=== PATIENT | male | born 1985 | race Caucasian/White ===

== ENCOUNTER 2018-05-09 10:50 | Emergency (ER) | payer OTHER ==
[2018-05-09] MEDS ORDERED: NS 1,000 ML IV ONE (11:08)
--- NOTE | 2018-05-09 11:22 | EDPHY ---
HPI/HX/ROS/PE/MDM Narrative: CHIEF COMPLAINT: Right-sided abdominal/flank pain HPI: This patient is a generally healthy 34-year-old male. He presents with right- sided abdominal and flank pain which began two days ago. The discomfort is a mild pressure sensation and intermittent, and seems to be associated with the urge to have a bowel movement. He denies fever. Two days ago, felt some malaise , but this has resolved. He endorses diarrhea this morning. No vomiting. No dysuria. He endorses possible dark urine but has not noted any lisa blood. No recent trauma. No abdominal surgeries. Family history of kidney stones in father. No chest pain, shortness of breath, headache, nausea, syncope, or other associated symptoms. REVIEW OF SYSTEMS: A comprehensive 10 system review of systems is otherwise negative aside from elements mentioned in the history of present illness and medical decision making. PMH: Left ACL repair. SOCIAL HISTORY: Works in [employer]. Single. Lives in [place]. PHYSICAL EXAM: General:Patient is alert, in no acute distress. ENT:Eyes are normal to inspection. ENT inspection normal. Neck: Normal inspection. Full range of motion. Respiratory:No respiratory distress. Breath sounds normal bilaterally. Cardiovascular: Regular rate and rhythm. Strong peripheral pulses. Normal cap refill. Abdomen:The abdomen is nontender to palpation. There are no peritoneal signs. There are normal bowel sounds. Back: Normal to inspection. No tenderness to palpation. Skin: Normal color. No rash. Warm and dry. Extremities: Normal appearance. Full range of motion. Neuro: Oriented x3. Normal motor function. Normal sensory function. ED Course: 32 y/o male presents with right-sided flank/abdominal discomfort, intermittent for the past two days. IV established. Plan for labs including CBC, chemistries , UA. Plan to administer 1L IV NS for symptom relief. Reviewed laboratory studies. These are largely unremarkable. 12:11 Reassessed. Discussed laboratory results. Discussed further evaluation including CT imaging. The patient declines CT abdomen/pelvis and would like to go home. He understands we cannot rule out processes including appendicitis or kidney stone without further testing and imaging. Plan to discharge home in good condition. Follow up and return precautions discussed. He is comfortable with this plan. MDM: This is a healthy young man with no significant past medical history complains of several days of right flank pain. His exam is reassuring, as are his laboratory and urinalysis results. I had extensive discussion with him regarding further workup and offered him CT scan here to officially exclude appendicitis or other potentially serious causes of pain. Patient elects to defer further workup at this time. He understands I am unable to rule out any potentially life-threatening or morbidity causing conditions. I strongly encouraged him to return to the emergency department should his symptoms worsen and also encouraged him to follow up with primary care physician for further workup. - Data Points Laboratory Results: Laboratory Results 05/09/18 11:20 05/09/18 11:20 05/09/18 05/09/18 05/09/18 11:20 11:20 10:55 WBC 5.42 10^3/uL 10^3/uL (3.80-9.50) RBC 5.51 10^6/uL 10^6/uL (4.40-6.38) Hgb 17.0 g/dL g/dL (13.7-17.5) Hct 50.2 % % (40.0-51.0) MCV 91.1 fL fL (81.5-99.8) MCH 30.9 pg pg (27.9-34.1) MCHC 33.9 g/dL g/dL (32.4-36.7) RDW 12.1 % % (11.5-15.2) Plt Count 261 10^3/uL 10^3/uL (150-400) MPV 8.7 fL fL (8.7-11.7) Neut % (Auto) 40.5 % % (39.3-74.2) Lymph % (Auto) 49.8 % H % (15.0-45.0) Frio % (Auto) 7.9 % % (4.5-13.0) Eos % (Auto) 0.9 % % (0.6-7.6) Baso % (Auto) 0.7 % % (0.3-1.7) Nucleat RBC Rel Count 0.0 % % (0.0-0.2) Absolute Neuts (auto) 2.19 10^3/uL 10^3/uL (1.70-6.50) Absolute Lymphs (auto) 2.70 10^3/uL 10^3/uL (1.00-3.00) Absolute Monos (auto) 0.43 10^3/uL 10^3/uL (0.30-0.80) Absolute Eos (auto) 0.05 10^3/uL 10^3/uL (0.03-0.40) Absolute Basos (auto) 0.04 10^3/uL 10^3/uL (0.02-0.10) Absolute Nucleated RBC 0.00 10^3/uL 10^3/uL (0-0.01) Immature Gran % 0.2 % % (0.0-1.1) Immature Gran # 0.01 10^3/uL 10^3/uL (0.00-0.10) Sodium 138 mEq/L mEq/L (135-145) Potassium 4.0 mEq/L mEq/L (3.5-5.2) Chloride 106 mEq/L mEq/L (97-110) Carbon Dioxide 25 mEq/l mEq/l (22-31) Anion Gap 7 mEq/L mEq/L (6-14) BUN 15 mg/dL mg/dL (7-23) Creatinine 1.0 mg/dL mg/dL (0.7-1.3) Estimated GFR > 60 Glucose 88 mg/dL mg/dL (70-100) Calcium 9.2 mg/dL mg/dL (8.5-10.4) Urine Color YELLOW Urine Appearance CLEAR Urine pH 5.0 (5.0-7.5) Ur Specific [place] 1.020 (1.002-1.030) Urine Protein NEGATIVE (NEGATIVE) Urine Ketones NEGATIVE (NEGATIVE) Urine Blood NEGATIVE (NEGATIVE) Urine Nitrate NEGATIVE (NEGATIVE) Urine Bilirubin NEGATIVE (NEGATIVE) Urine Urobilinogen 2.0 EU H EU (0.2-1.0) Ur Leukocyte Esterase NEGATIVE (NEGATIVE) Urine Glucose NEGATIVE (NEGATIVE) Medications Given: Discontinued Medications Sodium Chloride (Ns) 1,000 mls @ 0 mls/hr IV EDNOW ONE; Wide Open PRN Reason: Protocol Stop: 05/09/18 11:09 Last Admin: 05/09/18 11:24 Dose: 1,000 mls General Time Seen by Provider: 05/09/18 11:05 Initial Vital Signs: Initial Vital Signs Temperature (C) 36.7 C 05/09/18 10:53 Heart Rate 56 L 05/09/18 10:53 Respiratory Rate 16 05/09/18 10:53 Blood Pressure 132/76 H 05/09/18 10:53 O2 Sat (%) 98 05/09/18 10:53 O2 Delivery Mode Room Air Allergies/Adverse Reactions: No Known Allergies Allergy (Unverified 05/09/18 10:53) Home Medications: Medication Instructions Recorded NK [No Known Home Meds] 05/09/18 Departure - Departure Disposition: Home, Routine, Self-Care Clinical Impression: Flank pain, RLQ abdominal pain Condition: Good Instructions: Acute Abdominal Pain (ED), Flank Pain (ED) Additional Instructions: Follow-up with your primary doctor within 72 hours. As we discussed, we cannot fully rule out appendicitis or a kidney stone without additional tests/imaging studies. You are welcome to return to the emergency department at any time for further evaluation should symptoms persist or for any further concerns. Return to the Emergency Department for worsening pain, fever, severe vomiting, change in character or severity of pain, inability to urinate, or other worsening of condition. Referrals: Irais Phoenix MD [Medical Doctor] - As per Instructions Report Scribed for: Juan Ken Report Scribed by: Deepthi Gonsalves Date of Report: 05/09/18 Time of Report: 11:22 Physician Review and Approval Statement: Portions of this note were transcribed by an ED scribe. I personally performed the history, physical exam, and medical decision making; and confirm the accuracy of the information in the transcribed note.
[2018-05-09 11:42] LABS: PLATELET COUNT 261 10^3/uL (150-400)
[2018-05-09 12:17] VITALS: BP 118/64
== END 2018-05-09 12:17 | disposition home or self-care (01) ==
DX: R10.11 Right upper quadrant pain (principal); E86.9 Volume depletion, unspecified